=== PATIENT | female | born 1975 | race Hispanic/Latino ===

== ENCOUNTER 2017-06-02 07:52 | Observation (INO) | payer MEDICAID ==
[~2017-06-02] VITALS: Ht 167.6 cm; Wt 75.3 kg
[2017-06-02] MEDS: LACTATED RINGERS 1000ML 1,000 ML IV SCH ×2 (05:30→13:57)
[2017-06-02] MEDS ORDERED: SODIUM CHLORIDE 0.9% 1000ML 3,000 ML IV ONE (08:27)
[2017-06-02 08:28] LABS: BASOPHILS % (AUTO) 0.4 % (0.0-5.0); EOSINOPHILS % (AUTO) 0.1 % (0.0-8.0); LYMPHOCYTES % (AUTO) 9.7 % (21.0-51.0); MEAN CORPUSCULAR HEMOGLOBIN 30.5 pg (27.0-33.0); MEAN CORPUSCULAR HGB CONC 34.7 g/dL (32.0-36.0); MEAN CORPUSCULAR VOLUME 88.1 fL (79-99); MONOCYTES % (AUTO) 3.4 % (3.0-13.0); NEUTROPHILS % (AUTO) 86.4 % (40.0-77.0); PLATELET COUNT (AUTO) 222 K/uL (130-400); RED BLOOD CELL COUNT(AUTO) 3.75 MIL/uL (4.00-5.50); RED CELL DISTRIBUTION WIDTH 14.4 % (11.0-15.5); WHITE BLOOD COUNT (AUTO) 13.4 K/uL (4.8-10.8)
[2017-06-02] MEDS ORDERED: MEROPENEM 1 GM VIAL ONE (08:28)
[2017-06-02 08:35] LABS: CARBON DIOXIDE 28 mmol/L (21-32); CHLORIDE 100 mmol/L (101-111); CREATININE 0.8 mg/dL (0.5-1.5); GLOMERULAR FILTR. RATE CALC 84 mL/min (>60); GLUCOSE,RANDOM 106 mg/dL (70-105); POTASSIUM 3.4 mmol/L (3.5-5.1); SODIUM SERUM 137 mmol/L (136-145); UREA NITROGEN, BLOOD 5 mg/dL (7-18)
[2017-06-02 08:51] LABS: ALANINE AMINOTRANSFERASE 28 U/L (12-78); ALBUMIN 3.6 g/dL (3.5-5.0); ASPARTATE AMINOTRANSFERASE 26 U/L (10-37); BILIRUBIN,TOTAL 0.6 mg/dL (0.2-1.0); CREATINE KINASE MB < 0.5 ng/mL (0.5-3.6); CREATINE KINASE, TOTAL 90 U/L (21-232); MYOGLOBIN 25 ng/mL (10-92); TOTAL PROTEIN, SERUM 7.5 g/dL (6.0-8.3); TROPONIN I < 0.04 ng/mL (0.00-0.06)
[2017-06-02 08:56] LABS: INR 0.95 (0.85-1.15); PARTIAL THROMBOPLASTIN TIME 27.3 SEC (26.3-35.5)
[2017-06-02] MEDS ORDERED: KETOROLAC TROMETHAMINE 30MG/ML ONE (08:58)
[2017-06-02] MEDS ORDERED: IOPAMIDOL-370 75 ML VIAL IV ONE (09:16)
[2017-06-02 10:20] LABS: APPEARANCE,URINE Clear (CLEAR); BILIRUBIN,URINE Negative (NEGATIVE); COLOR,URINE Yellow (YELLOW); GLUCOSE, URINE (UA) Negative (NEGATIVE); KETONES,URINE Trace mg/dL (NEGATIVE); LEUKOCYTE ESTERASE ,URINE Moderate (NEGATIVE); NITRATE,URINE Negative (NEGATIVE); OCCULT BLOOD,URINE Negative (NEGATIVE); PH,URINE 7.5 (5.0-8.0); PROTEIN,URINE Negative (NEGATIVE); UROBILINOGEN,URINE 0.2 mg/dL (0.2-1.0)
[2017-06-02 10:29] LABS: BACTERIA,URINE Few /HPF (None Seen); RBC,URINE 0-1 /HPF (0-1)
[2017-06-02] MEDS ORDERED: HYDROMORPHONE HCL 2 MG/ML VIAL ONE (11:33)
[2017-06-02 12:20] VITALS: BP 135/85
[2017-06-02] MEDS ORDERED: PHARMACY COMMUNICATION MISC SCH (12:45)
[2017-06-02] MEDS ORDERED: HYDROCODONE/ACETAMINOPHEN 5/325 MG TAB PO PRN (12:45)
[2017-06-02] MEDS ORDERED: GENTAMICIN PROTOCOL PER PHARMACY IV SCH (13:15)
[2017-06-02] MEDS ORDERED: PROMETHAZINE HCL 25 MG/ML 1ML AMPULE IM PRN (13:45)
[2017-06-02] MEDS ORDERED: COMPOUND IV REFRIGERATED 1 EACH IVSOLN MISC PRN (13:45)
[2017-06-02] MEDS ORDERED: PROMETHAZINE HCL 25 MG/ML 1ML AMPULE IM ONE (13:53)
[2017-06-02] MEDS: CLINDAMYCIN 900 MG/D5% WATER 50 ML IV SCH ×2 (13:57→21:12)
[2017-06-02] MEDS: MEPERIDINE-PF 50 MG/ML SYG IM PRN ×3 (13:58→22:48)
[2017-06-02] MEDS: HYDROCODONE/ACETAMINOPHEN 5/325 MG TAB PO PRN ×2 (15:25→21:06)
[2017-06-02] MEDS: GENTAMICIN SULFATE 300 MG in SODIUM CHLORIDE 0.9% 100 ML IV SCH (15:27)
[2017-06-02 16:00] VITALS: BP 112/63
[2017-06-02] MEDS ORDERED: MULT-1203 PO (17:09)
[2017-06-02 20:14] VITALS: BP 109/71
[2017-06-02 23:54] VITALS: BP 99/57
[2017-06-03 03:50] VITALS: BP 109/63
[2017-06-03] MEDS: CLINDAMYCIN 900 MG/D5% WATER 50 ML IV SCH ×2 (05:44→12:20)
[2017-06-03] MEDS: HYDROCODONE/ACETAMINOPHEN 5/325 MG TAB PO PRN (05:49)
[2017-06-03 06:39] LABS: HEMATOCRIT 27.2 % (36-48); MEAN CORPUSCULAR HGB CONC 33.6 g/dL (32.0-36.0); MEAN CORPUSCULAR VOLUME 89.3 fL (79-99); PLATELET COUNT (AUTO) 174 K/uL (130-400); RED BLOOD CELL COUNT(AUTO) 3.05 MIL/uL (4.00-5.50); RED CELL DISTRIBUTION WIDTH 14.5 % (11.0-15.5)
[2017-06-03 08:05] VITALS: BP 117/62
[2017-06-03 11:20] VITALS: BP 110/64
[2017-06-03] MEDS ORDERED: DOCUSATE SODIUM 100 MG CAP PO SCH (12:00)
[2017-06-03] MEDS: GENTAMICIN SULFATE 300 MG in SODIUM CHLORIDE 0.9% 100 ML IV SCH (14:58)
[2017-06-03 15:38] VITALS: BP 118/80
== END 2017-06-03 15:55 | disposition home or self-care (01) ==
LOC: EDH 07:52 → WSH 11:30
PROVIDERS: ADMIT Obstetrics & Gynecology; ATTEND Obstetrics & Gynecology
DX: R10.2 Pelvic and perineal pain (principal); Z88.5 Allergy status to narcotic agent; Z88.0 Allergy status to penicillin; Z90.49 Acquired absence of other specified parts of digestive tract; F17.210 Nicotine dependence, cigarettes, uncomplicated
CPT/HCPCS: 36415 ×2; 71045; 74177; 80053; 80170 ×2; 81001; 82550; 82553; 83605; 83874; 84484; 84703; 85025; 85027; 85610; 85730; 87040 ×2; 87088; 87804 ×2; 93005; 96361; 96365; 96367; 96372 ×2; 96375 ×2; 96376 ×2; 99285; G0378 ×28; J1170; J1580 ×3; J1885; J2175 ×3; J2185; J2550 ×2; J3490 ×4; J7030; J7120; Q9967

== ENCOUNTER 2017-07-20 12:05 | Emergency (ER) | payer MEDICAID ==
[~2017-07-20 12:05] MED LIST: MULT-1203 PO
[2017-07-20] MEDS ORDERED: KETOROLAC TROMETHAMINE 60 MG/2 ML VIAL ONE (12:31)
== END 2017-07-20 12:45 | disposition home or self-care (01) ==
LOC: EDH 12:05
DX: M54.32 Sciatica, left side (principal); Z88.0 Allergy status to penicillin; Z88.5 Allergy status to narcotic agent
CPT/HCPCS: 96372; 99283; J1885

== ENCOUNTER 2017-07-23 04:23 | Emergency (ER) | payer MEDICAID | END 2017-07-23 06:02 | disposition home or self-care (01) | LOC: EDH 04:23 | DX: M54.32 Sciatica, left side (principal); R20.0 Anesthesia of skin; Z90.49 Acquired absence of other specified parts of digestive tract; Z88.0 Allergy status to penicillin; Z88.6 Allergy status to analgesic agent; Z72.0 Tobacco use | CPT/HCPCS: 99281 ==

== ENCOUNTER 2017-08-12 06:11 | Emergency (ER) | payer MEDICAID ==
[2017-08-12] MEDS ORDERED: HYDROCODONE/ACETAMINOPHEN 7.5/325 MG TAB ONE ×2 (07:20→07:30)
[2017-08-12] MEDS ORDERED: KETOROLAC TROMETHAMINE 30MG/ML ONE ×2 (07:20→07:30)
== END 2017-08-12 07:41 | disposition home or self-care (01) ==
LOC: EDH 06:11
DX: M54.32 Sciatica, left side (principal); R20.2 Paresthesia of skin; Z88.0 Allergy status to penicillin; Z88.5 Allergy status to narcotic agent; Z90.49 Acquired absence of other specified parts of digestive tract; Z98.890 Other specified postprocedural states
CPT/HCPCS: 81025; 96372; 99283; J1885 ×2

== ENCOUNTER 2017-08-18 06:30 | Emergency (ER) | payer MEDICAID ==
[2017-08-18] MEDS ORDERED: TETANUS/DIPHTHERIA TOXOID [ADULT] 0.5 ML VIAL IM ONE (07:17)
[2017-08-18] MEDS ORDERED: ACETAMINOPHEN-CODEINE 300/30MG TAB ONE (07:37)
== END 2017-08-18 09:30 | disposition short-term general hospital (02) ==
LOC: EDH 06:30
DX: S91.311A Laceration without foreign body, right foot, initial encounter (principal); Z72.0 Tobacco use; Z88.0 Allergy status to penicillin; Z88.5 Allergy status to narcotic agent; W45.8XXA Other foreign body or object entering through skin, initial encounter; Y93.G3 Activity, cooking and baking; Y92.098 Other place in other non-institutional residence as the place of occurrence of the external cause; Y99.8 Other external cause status
CPT/HCPCS: 73630; 81025; 90471; 90714

== ENCOUNTER 2018-05-30 18:57 | Emergency (ER) | payer MEDICAID ==
[2018-05-30 20:05] LABS: APPEARANCE,URINE SL CLOUDY (CLEAR); BILIRUBIN,URINE SMALL (NEGATIVE); COLOR,URINE YELLOW (YELLOW); GLUCOSE, URINE (UA) NEGATIVE (NEGATIVE); KETONES,URINE 5 mg/dL (NEGATIVE); LEUKOCYTE ESTERASE ,URINE NEGATIVE (NEGATIVE); NITRATE,URINE NEGATIVE (NEGATIVE); OCCULT BLOOD,URINE LARGE (NEGATIVE); PROTEIN,URINE 30 (NEGATIVE); UROBILINOGEN,URINE 0.2 mg/dL (0.2-1.0)
[2018-05-30 20:07] LABS: CREATININE 0.8 mg/dL (0.5-1.5); POTASSIUM 4.1 mmol/L (3.5-5.1)
[2018-05-30 20:08] LABS: HCG,QUAL RESULT NEGATIVE (NEGATIVE)
[2018-05-30] MEDS ORDERED: ONDANSETRON HCL 4 MG/2 ML VIAL ONE (20:11)
[2018-05-30 20:12] LABS: ALBUMIN 4.1 g/dL (3.5-5.0); BILIRUBIN,DIRECT 0.1 mg/dL (0.0-0.3); BILIRUBIN,TOTAL 0.6 mg/dL (0.2-1.0)
[2018-05-30 20:25] LABS: BACTERIA,URINE Few /HPF (None Seen); SQUAMOUS EPITHELIAL CELL,UR Moderate /HPF (0-2)
[2018-05-30 20:26] LABS: BASOPHILS % (AUTO) 0.5 % (0.0-5.0); EOSINOPHILS % (AUTO) 2.5 % (0.0-8.0); HEMATOCRIT 43.2 % (36-48); LYMPHOCYTES % (AUTO) 23.4 % (21.0-51.0); MEAN CORPUSCULAR HEMOGLOBIN 32.3 pg (27.0-33.0); MEAN CORPUSCULAR HGB CONC 33.6 g/dL (32.0-36.0); MEAN CORPUSCULAR VOLUME 96.2 fL (79-99); NEUTROPHILS % (AUTO) 66.6 % (40.0-77.0); PLATELET COUNT (AUTO) 214 K/uL (130-400); RED BLOOD CELL COUNT(AUTO) 4.49 MIL/uL (4.00-5.50); WHITE BLOOD COUNT (AUTO) 7.2 K/uL (4.8-10.8)
[2018-05-30] MEDS ORDERED: KETOROLAC TROMETHAMINE 30MG/ML ONE (20:59)
== END 2018-05-30 21:30 | disposition home or self-care (01) ==
LOC: EDH 18:57
DX: K52.9 Noninfective gastroenteritis and colitis, unspecified (principal); Z88.0 Allergy status to penicillin; Z88.6 Allergy status to analgesic agent; Z72.0 Tobacco use; Z90.49 Acquired absence of other specified parts of digestive tract
CPT/HCPCS: 36415; 80048; 80076; 81001; 81025; 85025; 87804 ×2; 96361; 96374; 96375; 99283; J1885; J2405

== ENCOUNTER 2018-07-19 17:15 | Emergency (ER) | payer MEDICAID | END 2018-07-19 17:41 | disposition left against medical advice (07) | LOC: EDH 17:15 | DX: Z53.21 Procedure and treatment not carried out due to patient leaving prior to being seen by health care provider (principal) ==

== ENCOUNTER 2018-07-20 08:30 | Emergency (ER) | payer MEDICAID ==
[2018-07-20 09:57] LABS: APPEARANCE,URINE Clear (CLEAR); BILIRUBIN,URINE Negative (NEGATIVE); COLOR,URINE Yellow (YELLOW); GLUCOSE, URINE (UA) Negative (NEGATIVE); KETONES,URINE Negative (NEGATIVE); LEUKOCYTE ESTERASE ,URINE Trace (NEGATIVE); NITRATE,URINE Negative (NEGATIVE); OCCULT BLOOD,URINE Moderate (NEGATIVE); PH,URINE 6.5 (5.0-8.0); PROTEIN,URINE Negative (NEGATIVE); UROBILINOGEN,URINE 0.2 mg/dL (0.2-1.0)
[2018-07-20 10:02] LABS: BACTERIA,URINE Rare /HPF (None Seen); RBC,URINE 0-1 /HPF (0-1); SQUAMOUS EPITHELIAL CELL,UR Moderate /HPF (0-2); WBC,URINE 0-1 /HPF (0-1)
[2018-07-20] MEDS ORDERED: ACETAMINOPHEN-CODEINE 300/30MG TAB ONE (11:10)
[2018-07-20] MEDS ORDERED: ONDANSETRON ODT 4 MG TAB ONE (11:10)
[2018-07-20 11:17] LABS: BASOPHILS % (AUTO) 0.5 % (0.0-5.0); HEMATOCRIT 34.4 % (36-48); LYMPHOCYTES % (AUTO) 30.5 % (21.0-51.0); MEAN CORPUSCULAR HGB CONC 34.2 g/dL (32.0-36.0); MEAN CORPUSCULAR VOLUME 93.6 fL (79-99); MONOCYTES % (AUTO) 6.7 % (3.0-13.0); NEUTROPHILS % (AUTO) 60.3 % (40.0-77.0); PLATELET COUNT (AUTO) 246 K/uL (130-400); RED BLOOD CELL COUNT(AUTO) 3.68 MIL/uL (4.00-5.50); RED CELL DISTRIBUTION WIDTH 12.6 % (11.0-15.5); WHITE BLOOD COUNT (AUTO) 6.9 K/uL (4.8-10.8)
[2018-07-20 11:26] LABS: CREATININE 0.5 mg/dL (0.5-1.5); POTASSIUM 3.4 mmol/L (3.5-5.1)
[2018-07-20 11:32] LABS: ALBUMIN 3.3 g/dL (3.5-5.0); BILIRUBIN,TOTAL 0.6 mg/dL (0.2-1.0)
== END 2018-07-20 12:31 | disposition home or self-care (01) ==
LOC: EDH 08:30
DX: G89.18 Other acute postprocedural pain (principal); R10.30 Lower abdominal pain, unspecified; Z88.0 Allergy status to penicillin; Z88.6 Allergy status to analgesic agent; Z90.49 Acquired absence of other specified parts of digestive tract; Z98.890 Other specified postprocedural states
CPT/HCPCS: 36415; 74176; 80053; 81001; 81025; 83690; 85025

== ENCOUNTER 2019-03-15 11:14 | Emergency (ER) | payer MEDICAID ==
[2019-03-15] MEDS ORDERED: ONDANSETRON ODT 4 MG TAB ONE (11:33)
[2019-03-15] MEDS ORDERED: SODIUM CHLORIDE 0.9% 1000ML 1,000 ML IV ONE (11:46)
[2019-03-15] MEDS ORDERED: SIMETHICONE 80 MG TAB.CHEW ONE (11:46)
[2019-03-15] MEDS ORDERED: DICYCLOMINE HCL 10 MG/ML 2ML AMP IM ONE (11:46)
[2019-03-15 11:49] LABS: APPEARANCE,URINE Clear (CLEAR); BILIRUBIN,URINE Negative (NEGATIVE); COLOR,URINE Yellow (YELLOW); GLUCOSE, URINE (UA) Negative (NEGATIVE); KETONES,URINE Negative (NEGATIVE); LEUKOCYTE ESTERASE ,URINE Negative (NEGATIVE); NITRATE,URINE Negative (NEGATIVE); OCCULT BLOOD,URINE Negative (NEGATIVE); PROTEIN,URINE Negative (NEGATIVE)
[2019-03-15 11:52] LABS: HCG,QUAL RESULT NEGATIVE (NEGATIVE)
[2019-03-15 12:11] LABS: BASOPHILS % (AUTO) 0.4 % (0.0-5.0); EOSINOPHILS % (AUTO) 0.7 % (0.0-8.0); LYMPHOCYTES % (AUTO) 14.2 % (21.0-51.0); MEAN CORPUSCULAR HGB CONC 34.7 g/dL (32.0-36.0); MONOCYTES % (AUTO) 6.6 % (3.0-13.0); NEUTROPHILS % (AUTO) 78.1 % (40.0-77.0); PLATELET COUNT (AUTO) 231 K/uL (130-400); RED BLOOD CELL COUNT(AUTO) 4.11 MIL/uL (4.00-5.50); RED CELL DISTRIBUTION WIDTH 12.4 % (11.0-15.5); WHITE BLOOD COUNT (AUTO) 9.3 K/uL (4.8-10.8)
[2019-03-15 12:21] LABS: CREATININE 0.6 mg/dL (0.5-1.5); POTASSIUM 3.8 mmol/L (3.5-5.1)
[2019-03-15 12:27] LABS: ALBUMIN 3.3 g/dL (3.5-5.0); BILIRUBIN,TOTAL 0.8 mg/dL (0.2-1.0); MAGNESIUM 1.6 mg/dL (1.80-2.40)
== END 2019-03-15 13:18 | disposition home or self-care (01) ==
LOC: EDH 11:14
DX: R11.2 Nausea with vomiting, unspecified (principal); R19.7 Diarrhea, unspecified; Z90.49 Acquired absence of other specified parts of digestive tract; Z72.0 Tobacco use; Z88.0 Allergy status to penicillin; Z88.5 Allergy status to narcotic agent
CPT/HCPCS: 36415; 80053; 81003; 81025; 83690; 83735; 85025; 96360; 96372; 99284; J0500; J7030

== ENCOUNTER → 2019-12-24 | Outpatient (CLI) | payer MEDICAID | END | disposition home or self-care (01) | LOC: SHCH 12:24 | PROVIDERS: ATTEND Internal Medicine Cardiovascular Disease | DX: I87.2 Venous insufficiency (chronic) (peripheral) (principal) | CPT/HCPCS: 93970 ==

== ENCOUNTER → 2020-08-31 | Emergency (ER) | payer MEDICAID ==
[~2020-08-31] MED LIST changes: +ACETAMINOPHEN EXTRA STRENGTH 500 MG TABLET ONE; +LEVOFLOXACIN 500 MG/D5W 100 ML 100 ML ONE; +ONDANSETRON HCL 4 MG/2 ML VIAL ONE
[2020-08-31 16:33] LABS: BASOPHILS % (AUTO) 0.4 % (0.0-5.0); EOSINOPHILS % (AUTO) 1.7 % (0.0-8.0); HEMATOCRIT 27.1 % (36-48); LYMPHOCYTES % (AUTO) 19.3 % (21.0-51.0); MEAN CORPUSCULAR HGB CONC 33.6 g/dL (32.0-36.0); MEAN CORPUSCULAR VOLUME 95.4 fL (79-99); MONOCYTES % (AUTO) 7.2 % (3.0-13.0); PLATELET COUNT (AUTO) 330 K/uL (130-400); RED BLOOD CELL COUNT(AUTO) 2.84 MIL/uL (4.00-5.50); RED CELL DISTRIBUTION WIDTH 12.4 % (11.0-15.5); WHITE BLOOD COUNT (AUTO) 10.7 K/uL (4.8-10.8)
[2020-08-31 16:47] LABS: CREATININE 0.8 mg/dL (0.5-1.5); POTASSIUM 3.7 mmol/L (3.5-5.1)
[2020-08-31 16:51] LABS: ALBUMIN 2.7 g/dL (3.5-5.0); BILIRUBIN,TOTAL 0.5 mg/dL (0.2-1.0); TOTAL PROTEIN, SERUM 6.2 g/dL (6.0-8.3)
[2020-08-31 17:22] LABS: APPEARANCE,URINE Clear (CLEAR); BILIRUBIN,URINE Negative (NEGATIVE); COLOR,URINE Yellow (YELLOW); GLUCOSE, URINE (UA) Negative (NEGATIVE); KETONES,URINE Negative (NEGATIVE); LEUKOCYTE ESTERASE ,URINE Negative (NEGATIVE); NITRATE,URINE Negative (NEGATIVE); OCCULT BLOOD,URINE Negative (NEGATIVE); PROTEIN,URINE Negative (NEGATIVE); UROBILINOGEN,URINE 0.2 mg/dL (0.2-1.0)
== END ==
LOC: EDH 14:39
DX: G89.18 Other acute postprocedural pain (principal); Z90.49 Acquired absence of other specified parts of digestive tract; Z88.0 Allergy status to penicillin; Z88.5 Allergy status to narcotic agent
CPT/HCPCS: 36415; 80053; 81003; 82550; 83605; 85025; 87040 ×2; 96365; 96368; 99284; J1956; J2405

== ENCOUNTER 2020-09-30 07:59 | Emergency (ER) | payer MEDICAID ==
[~2020-09-30] VITALS: Ht 160 cm; Wt 72.6 kg
[~2020-09-30 07:59] MED LIST changes: -ACETAMINOPHEN EXTRA STRENGTH 500 MG TABLET ONE; +DOXY100C2 PO; +LEVO750T46 PO; -LEVOFLOXACIN 500 MG/D5W 100 ML 100 ML ONE; -ONDANSETRON HCL 4 MG/2 ML VIAL ONE
[2020-09-30 08:07] VITALS: BP 141/78
[2020-09-30 09:41] VITALS: BP 126/68
== END 2020-09-30 10:12 | disposition home or self-care (01) ==
LOC: EDH 07:59
DX: Z48.02 Encounter for removal of sutures (principal); E11.9 Type 2 diabetes mellitus without complications; Z88.0 Allergy status to penicillin; Z88.5 Allergy status to narcotic agent; Z79.899 Other long term (current) drug therapy
CPT/HCPCS: 99281

== ENCOUNTER 2021-01-06 07:32 | Emergency (ER) | payer MEDICAID ==
[~2021-01-06] VITALS: Ht 167.6 cm; Wt 73.0 kg
[~2021-01-06 07:32] MED LIST changes: -DOXY100C2 PO; +DOXY100C5 PO
[2021-01-06 08:10] VITALS: BP 154/99
[2021-01-06] MEDS ORDERED: DIPH1POW36 PO (08:27)
== END 2021-01-06 08:39 | disposition home or self-care (01) ==
LOC: EDH 07:32
DX: J06.9 Acute upper respiratory infection, unspecified (principal); Z20.822 Contact with and (suspected) exposure to COVID-19; Z88.0 Allergy status to penicillin; Z88.5 Allergy status to narcotic agent; Z90.49 Acquired absence of other specified parts of digestive tract
CPT/HCPCS: 87635; 87804 ×2; 87880; 99283; C9803

== ENCOUNTER 2021-02-12 07:33 | Emergency (ER) | payer MEDICAID ==
[~2021-02-12] VITALS: Ht 167.6 cm; Wt 73.0 kg
[~2021-02-12 07:33] MED LIST changes: +DIPH1POW36 PO
[2021-02-12] MEDS ORDERED: TETANUS/DIPHTHERIA TOXOID [ADULT] 0.5 ML VIAL IM ONE (08:00)
[2021-02-12] MEDS ORDERED: IBUPROFEN 600 MG TABLET PO ONE (08:00)
[2021-02-12] MEDS ORDERED: SULF1TAB42 PO (08:12)
[2021-02-12 08:27] VITALS: BP 145/95
[2021-02-12] MEDS ORDERED: SULFAMETHOX-TMP DS 800/160 TAB PO SCH (08:30)
== END 2021-02-12 08:28 | disposition home or self-care (01) ==
LOC: EDH 07:33
DX: S92.534A Nondisplaced fracture of distal phalanx of right lesser toe(s), initial encounter for closed fracture (principal); S91.114A Laceration without foreign body of right lesser toe(s) without damage to nail, initial encounter; I10 Essential (primary) hypertension; Z88.0 Allergy status to penicillin; Z88.5 Allergy status to narcotic agent; Z90.49 Acquired absence of other specified parts of digestive tract; X58.XXXA Exposure to other specified factors, initial encounter; Y93.89 Activity, other specified; Y92.89 Other specified places as the place of occurrence of the external cause; Y99.8 Other external cause status
CPT/HCPCS: 73660; 90471; 90714

== ENCOUNTER 2021-04-14 12:07 | Emergency (ER) | payer MEDICAID ==
[~2021-04-14] VITALS: Ht 170.2 cm; Wt 72.6 kg
[~2021-04-14 12:07] MED LIST changes: +SULF1TAB42 PO
[2021-04-14 12:09] VITALS: BP 153/94
[2021-04-14] MEDS ORDERED: GUAIFENESIN-DM 200/20 MG 10 ML PO ONE (13:00)
[2021-04-14] MEDS ORDERED: KETOROLAC 30MG VIAL (30MG/ML) IM ONE (13:00)
[2021-04-14] MEDS ORDERED: DEXAMETHASONE SOD PHOSPHATE 4 MG/ML 1ML VIAL IM SCH (13:00)
[2021-04-14] MEDS ORDERED: ALBU90AE2 IH (14:36)
[2021-04-14] MEDS ORDERED: AMOX-429 PO (14:36)
[2021-04-14] MEDS ORDERED: D-ME118S47 PO (14:36)
[2021-04-14] MEDS ORDERED: KETOROLAC 30MG VIAL (30MG/ML) ONE (14:43)
[2021-04-14] MEDS ORDERED: GUAIFENESIN-CODEINE 5 ML SYRUP ONE (14:43)
[2021-04-14] MEDS ORDERED: GUAIFENESIN-DM 200/20 MG 10 ML ONE (14:47)
== END 2021-04-14 15:18 | disposition home or self-care (01) ==
LOC: EDH 12:07
DX: U07.1 COVID-19 (principal); J32.9 Chronic sinusitis, unspecified; Z88.0 Allergy status to penicillin; Z88.5 Allergy status to narcotic agent; Z79.899 Other long term (current) drug therapy; Z79.1 Long term (current) use of non-steroidal anti-inflammatories (NSAID); Z79.52 Long term (current) use of systemic steroids; Z90.49 Acquired absence of other specified parts of digestive tract
CPT/HCPCS: 87635; 87804 ×2; 87880; 96372 ×2; 99284; C9803; J1100; J1885

== ENCOUNTER 2021-12-27 08:46 | Emergency (ER) | payer MEDICAID ==
[~2021-12-27] VITALS: Ht 167.6 cm; Wt 79.4 kg
[~2021-12-27 08:46] MED LIST changes: +ALBU90AE2 IH; +AMOX-429 PO; +D-ME118S47 PO; +LEVO750T39 PO; -LEVO750T46 PO
[2021-12-27 09:30] LABS: BASOPHILS % (AUTO) 0.3 % (0.0-5.0); EOSINOPHILS % (AUTO) 1.8 % (0.0-8.0); HEMATOCRIT 34.9 % (36-48); LYMPHOCYTES % (AUTO) 33.9 % (21.0-51.0); MEAN CORPUSCULAR HEMOGLOBIN 31.5 pg (27.0-33.0); MEAN CORPUSCULAR HGB CONC 33.2 g/dL (32.0-36.0); MEAN CORPUSCULAR VOLUME 94.8 fL (79-99); MONOCYTES % (AUTO) 7.1 % (3.0-13.0); NEUTROPHILS % (AUTO) 56.4 % (40.0-77.0); PLATELET COUNT (AUTO) 253 K/uL (130-400); RED BLOOD CELL COUNT(AUTO) 3.68 MIL/uL (4.00-5.50); RED CELL DISTRIBUTION WIDTH 12.4 % (11.0-15.5); WHITE BLOOD COUNT (AUTO) 6.6 K/uL (4.8-10.8)
[2021-12-27 09:36] LABS: APPEARANCE,URINE CLEAR (CLEAR); BILIRUBIN,URINE NEGATIVE (NEGATIVE); COLOR,URINE YELLOW (YELLOW); GLUCOSE, URINE (UA) NEGATIVE (NEGATIVE); KETONES,URINE NEGATIVE (NEGATIVE); LEUKOCYTE ESTERASE ,URINE SMALL (NEGATIVE); NITRATE,URINE NEGATIVE (NEGATIVE); OCCULT BLOOD,URINE TRACE-INTACT (NEGATIVE); PH,URINE 5.5 (5.0-8.0); PROTEIN,URINE NEGATIVE (NEGATIVE); UROBILINOGEN,URINE 0.2 mg/dL (0.2-1.0)
[2021-12-27 09:37] LABS: CREATININE 0.6 mg/dL (0.5-1.5); POTASSIUM 4.3 mmol/L (3.5-5.1)
[2021-12-27 09:41] LABS: BACTERIA,URINE Rare /HPF (None Seen); RBC,URINE 0-1 /HPF (0-1); SQUAMOUS EPITHELIAL CELL,UR Rare /HPF (0-2); WBC,URINE 0-1 /HPF (0-1)
[2021-12-27 09:42] LABS: ALBUMIN 3.3 g/dL (3.5-5.0); TOTAL PROTEIN, SERUM 6.9 g/dL (6.0-8.3)
[2021-12-27] MEDS ORDERED: NITR100C4 PO (10:49)
[2021-12-27 10:52] VITALS: BP 131/84
== END 2021-12-27 11:00 | disposition home or self-care (01) ==
LOC: EDH 08:46
DX: N39.0 Urinary tract infection, site not specified (principal); J32.9 Chronic sinusitis, unspecified; Z20.822 Contact with and (suspected) exposure to COVID-19; Z88.0 Allergy status to penicillin; Z88.5 Allergy status to narcotic agent; Z90.49 Acquired absence of other specified parts of digestive tract
CPT/HCPCS: 99283; 87635; 80053; 85025; 87804 ×2; 81001; 36415; C9803

== ENCOUNTER 2022-11-15 05:46 | Emergency (ER) | payer MEDICAID ==
[~2022-11-15] VITALS: Ht 167.6 cm; Wt 85.3 kg
[~2022-11-15 05:46] MED LIST changes: +NITR100C4 PO
[2022-11-15 05:48] VITALS: BP 134/87; PULSE 76; RESP 18
== END 2022-11-15 06:42 | disposition home or self-care (01) ==
LOC: EDH 05:46
DX: I96 Gangrene, not elsewhere classified (principal); Z90.49 Acquired absence of other specified parts of digestive tract; Z88.5 Allergy status to narcotic agent; Z88.0 Allergy status to penicillin
CPT/HCPCS: 99281

== ENCOUNTER 2023-07-11 13:27 | Emergency (ER) | payer MEDICAID ==
[~2023-07-11] VITALS: Ht 167.6 cm; Wt 80.3 kg
[2023-07-11 13:31] VITALS: BP 135/79; PULSE 101; RESP 20
[2023-07-11 13:55] LABS: RAPID GROUP A STREP negative (NEGATIVE)
[2023-07-11 13:56] LABS: INFLUENZA TYPE A Negative For Type A (NEGATIVE); INFLUENZA TYPE B Negative For Type B (NEGATIVE)
[2023-07-11 13:57] LABS: SARS-CoV-2, RNA, NAAT NEGATIVE SARS CoV-2 (NEGATIVE)
[2023-07-11] MEDS ORDERED: BENZ-39 PO (15:53)
[2023-07-11] MEDS ORDERED: ALBUHFA IH (15:53)
== END 2023-07-11 15:50 | disposition left against medical advice (07) ==
LOC: EDH 13:27
DX: J06.9 Acute upper respiratory infection, unspecified (principal); Z20.822 Contact with and (suspected) exposure to COVID-19; Z79.899 Other long term (current) drug therapy; Z98.890 Other specified postprocedural states; Z90.49 Acquired absence of other specified parts of digestive tract; Z88.0 Allergy status to penicillin; Z88.5 Allergy status to narcotic agent
CPT/HCPCS: 71045; 87635; 87804; 87880

== ENCOUNTER 2024-02-17 09:13 | Emergency (ER) | payer MEDICAID ==
[~2024-02-17] VITALS: Ht 167.6 cm; Wt 78.0 kg
[~2024-02-17 09:13] MED LIST changes: -ALBU90AE2 IH; +ALBU90AE3 IH; +ALBUHFA IH; +BENZ-39 PO; +BROM118S48 PO; -D-ME118S47 PO; -LEVO750T39 PO; +LEVO750T40 PO
[2024-02-17 09:48] LABS: APPEARANCE,URINE CLOUDY (CLEAR); BILIRUBIN,URINE NEGATIVE (NEGATIVE); COLOR,URINE LIGHT-ORANGE (YELLOW); GLUCOSE, URINE (UA) NEGATIVE (NEGATIVE); KETONES,URINE NEGATIVE (NEGATIVE); LEUKOCYTE ESTERASE ,URINE NEGATIVE Leu/uL (NEGATIVE); NITRATE,URINE NEGATIVE (NEGATIVE); OCCULT BLOOD,URINE LARGE (NEGATIVE); PROTEIN,URINE 20 mg/dL (NEGATIVE); UROBILINOGEN,URINE 0.2 mg/dL (0.2-1.0)
--- NOTE | 2024-02-17 09:53 | ERN ---
ED Note History of Present Illness Stated Complaint: PELVIC PAIN Chief Complaint: Pelvic Pain Time Seen by MD: 09:14 Dictation: 48-year-old female presents to the ED for evaluation of pelvic pain onset 1 day ago. Patient reports right lower quadrant abdominal pain worsening with movement, but denies any vomiting, diarrhea or any other associated symptoms at this time. Patient has history of BBL surgery, tummy tuck. No other medical or surgical history mentioned. Allergies: Coded Allergies: Penicillins (Verified Allergy, 06/27/12) morphine (Verified Allergy, 06/27/12) Home Meds Active Scripts Benzonatate (Tessalon Perles) 100 Mg Cap, 100 MG PO TID for cough, #30 CAP 0 Refills Prov:MARCY SEE NP 07/11/23 Albuterol Sulfate (Ventolin Hfa/Proventil Hfa/Proair Hfa) 90 Mcg Puff, 2 PUFF IH Q4H PRN for SHORTNESS OF BREATH/WHEEZING for 30 Days, #1 INH 0 Refills Prov:MARCY SEE NP 07/11/23 Nitrofurantoin Monohyd/M-Cryst (Macrobid 100 mg Capsule) 100 Mg Capsule, 100 MG PO BID for 7 Days, #14 CAP Prov:JALEEL LIPSCOMB MD 12/27/21 Albuterol Sulfate (Proair Digihaler) 90 Mcg Aer.pw.bas, 90 MCG IH Q4HPRN for 30 Days, #1 INHALER Prov:CHAYITO MARSHALL NP 04/14/21 D-Methorphan Hb/P-Epd HCl/Bpm (Bromfed Dm Cough Syrup) 118 Ml Syrup, 7.5 ML PO TID for cough for 5 Days, #120 ML Prov:CHAYITO MARSHALL NP 04/14/21 Amoxicillin/Potassium Clav (Augmentin 875-125 Tablet) 1 Each Tablet, 1 EACH PO BID for 10 Days, #20 TAB Prov:CHAYITO MARSHALL NP 04/14/21 Sulfamethoxazole/Trimethoprim (Bactrim Ds Tablet) 1 Each Tablet, 1 TAB PO BID for 7 Days, #14 TAB 0 Refills Prov:GASTON AUGUSTE MD 02/12/21 Diphenhyd/Phenyleph/Acetaminop (Theraflu Nighttime Powerpod) 1 Each Powder.pod, 1 EACH PO BID, #1 PACK Prov:AZAM JARA MD 01/06/21 Doxycycline Hyclate (Doxycycline Hyclate) 100 Mg Capsule, 100 MG PO BID for 10 Days, #20 CAP Prov:RADHA PACHECO MD 09/04/20 Levofloxacin (Levofloxacin) 750 Mg Tablet, 750 MG PO DAILY for 10 Days, #10 TAB Prov:RADHA PACHECO MD 09/04/20 Reported Medications Multivitamin (Multi Vitamin Daily) 1 Each Tablet, 1 EACH PO DAILY, TAB 06/02/17 Past Medical History Past Medical History: No Pertinent History Additional Past Medical Hx: DENIES PMHX Surgical History: Appendectomy, Cholecystectomy, Other Surgical History Other: RIGHT FOOT TENDON Family History: HTN History: Not Applicable Review of System Dictation Constitutional: Negative for fever,chills, and weight loss Eyes: Negative for injury, pain,redness, and discharge ENT: Negative for injury,pain or swelling Cardiovascular: Negative for chest pain, palpitations, and edema Respiratory: Negative for shortness of breath, cough, and wheezing, Abdomen/GI: Positive for right lower quadrant abdominal pain and right pelvic pain, negative for, nausea, vomiting, diarrhea, and constipation Back: Negative for injury and pain : Negative for injury, bleeding and discharge MS/Extremity: Negative for injury and deformity Skin: Negative for rash, and discoloration Neuro: Negative for headache, weakness, numbness, tingling, and seizure Psych: Negative for suicide ideation, homicidal ideation, and hallucinations Initial Vital Sign VS Vital Signs Date Time Temp Pulse Resp B/P (MAP) Pulse Ox O2 Delivery O2 Flow Rate FiO2 02/17/24 09:17 97.9 85 18 131/97 100 Room Air 02/17/24 09:21 0 21 Physical Exam Dictation General: awake, alert, NAD Head/Face: Normocephalic, atraumatic Eyes: PERRL, EOMI, vision at baseline ENT: oral cavity clear, TMs clear, no signs of infection Neck: Trachea midline, supple, no nuchal rigidity Cardiovascular: RRR, normal S1/S2, No MRGs, no JVD Respiratory: CTAB, no respiratory distress, No rales or wheezes Abdomen: Soft, non-tender, non-distended, normal bowel sounds, no guarding or rebound. Skin: Warm, dry, normal turgor, no rash MS/Extremity: Pulses equal, no cyanosis, neurovascular intact, FROM Neuro: COAx4, GCS 15, strength 5/5, CN 2-12 intact, normal cerebellar exam, normal gait, Psych: Normal behavior, mood, and affect normal Results (Laboratory/Radiology) Laboratory/Radiology Laboratory Tests Test 02/17/24 09:35 02/17/24 10:13 Urine Color LIGHT-ORANGE (YELLOW) Urine Appearance CLOUDY (CLEAR) H Urine pH 8.0 (5.0-8.0) Urine Specific [place] 1.024 (1.001-1.031) Urine Protein 20 mg/dL (NEGATIVE) H Urine Glucose (UA) NEGATIVE mg/dL (NEGATIVE) Urine Ketones NEGATIVE mg/dL (NEGATIVE) Urine Occult Blood LARGE (NEGATIVE) H Urine Nitrate NEGATIVE (NEGATIVE) Urine Bilirubin NEGATIVE mg/dL (NEGATIVE) Urine Urobilinogen 0.2 mg/dL (0.2-1.0) Urine Leukocyte Esterase NEGATIVE Cristi/uL Urine RBC 11-25 /HPF (0-1) H Urine WBC 2-5 /HPF (0-1) H Urine Squamous Epithelial Cells MANY /HPF (0-2) Urine Bacteria None /HPF (None Seen) White Blood Count 7.8 K/uL (4.8-10.8) Red Blood Count 3.88 MIL/uL (4.00-5.50) L Hemoglobin 12.5 g/dL (12.0-16.0) Hematocrit 37.5 % (36-48) Mean Corpuscular Volume 96.6 fL (79-99) Mean Corpuscular Hemoglobin 32.2 pg (27.0-33.0) Mean Corpuscular Hemoglobin Concent 33.3 g/dL (32.0-36.0) Red Cell Distribution Width 12.1 % (11.0-15.5) Platelet Count 277 K/uL (130-400) Mean Platelet Volume 10.6 fL (7.5-10.5) H Immature Granulocyte % (Auto) 0.4 % (0-1) Neutrophils (%) (Auto) 52.9 % (40.0-77.0) Lymphocytes (%) (Auto) 38.9 % (21.0-51.0) Monocytes (%) (Auto) 5.2 % (3.0-13.0) Eosinophils (%) (Auto) 2.0 % (0.0-8.0) Basophils (%) (Auto) 0.6 % (0.0-5.0) Neutrophils # (Auto) 4.1 K/uL (1.8-7.7) Lymphocytes # (Auto) 3.1 K/uL (1.0-4.8) Monocytes # (Auto) 0.4 K/uL (0.1-1.0) Eosinophils # (Auto) 0.16 K/uL (0.00-0.70) Basophils # (Auto) 0.05 K/uL (0.00-0.20) Absolute Immature Granulocyte (auto 0.03 K/uL (0-1) Nucleated Red Blood Cells 0.0 % (0.0-0.19) Sodium Level 137 mmol/L (136-145) Potassium Level 4.6 mmol/L (3.5-5.1) Chloride Level 104 mmol/L (101-111) Carbon Dioxide Level 32 mmol/L (21-32) Blood Urea Nitrogen 7 mg/dL (7-18) Creatinine 0.7 mg/dL (0.5-1.0) Glomerular Filtration Rate Calc 108 mL/min (>90) Random Glucose 101 mg/dL (70-105) Total Calcium 9.3 mg/dL (8.5-10.1) Labs Reviewed?: Yes ED Course ED Course Orders Procedure Category Date Status Time Cbc With Differential LAB 02/17/24 Complete 09:31 Basic Metabolic Panel LAB 02/17/24 Complete 09:31 Urinalysis LAB 02/17/24 Complete W/Microscopic 09:31 Us Pelvic Non-Ob Comp US 02/17/24 Resulted 09:31 Ketorolac PHA 02/17/24 In Process Tromethamine 30mg/Ml 11:30 Current Medications Medications (Trade) Dose Ordered Sig/Hiram Route PRN Reason Start Time Stop Time Status Last Admin Dose Admin Ketorolac Tromethamine (toRADol) 30 mg ONCE ONCE IM 02/17/24 11:30 02/17/24 11:31 Vital Signs Date Time Temp Pulse Resp B/P (MAP) Pulse Ox O2 Delivery O2 Flow Rate FiO2 02/17/24 09:21 97.9 85 18 131/97 100 Room Air* 0 21 02/17/24 09:17 97.9 85 18 131/97 100 Room Air Medical Decision Making MDM MDM: Differential diagnosis: Pelvic pain, ovarian cyst, appendicitis Previous outside records reviewed: Old ER visits. Need for hospitalization: Patient does not meet criteria for hospitalization. Need for emergency major/minor surgery: No Patient's prior external medical records from other ER visits were reviewed by me as indicated. Prior testing and results from previous visits were reviewed. Prior tests were taken into account with medical decision making and resource utilization, independent historian/historians were used to obtain complete medical history. I independently interpreted the test that were performed, results were reviewed by me and considered findings on radiology if ordered. Medical management and examination interpretation discussions were had by me with other qualified healthcare professionals as indicated for the patient's care. DX & DISP Disposition: Discharge Departure Impression: Primary Impression: Ovarian cyst Condition: Stable Additional Instructions: FOLLOW-UP WITH PRIMARY CARE PROVIDER IN 1 TO 2 DAYS. TAKE MEDICATIONS DIRECTED HERE IN THE EMERGENCY ROOM. OKAY TO CONTINUE HOME MEDICATIONS UNLESS OTHERWISE DISCUSSED DURING YOUR VISIT IN THE EMERGENCY ROOM TODAY. RETURN TO YOUR NEAREST EMERGENCY ROOM IF SYMPTOMS WORSEN OR IF THERE IS NO IMPROVEMENT. CALL 911 IF YOU NEED IMMEDIATE ASSISTANCE. TAKE TYLENOL [id number] NEEDED AND IF NO CONTRAINDICATIONS ARE PRESENT. INCREASE ORAL HYDRATION. A WOUND CULTURE OR URINE CULTURE WAS ORDERED HERE IN THE EMERGENCY ROOM DEPARTMENT PLEASE FOLLOW-UP WITH PRIMARY CARE PROVIDER AND ADVISE THEM TO GET REPEAT PORTS FROM OUR FACILITY. IF YOU HAD ANY DONAVAN WRAP/SPLINTS THAT WERE APPLIED HERE, PLEASE DO NOT REMOVE THEM UNTIL YOU SEE YOUR PRIMARY CARE OR SPECIALTY. REFERRALS: Referrals: YAMEL NAJERA MD (PCP) KWADWO MALONE MD Time of Disposition: 11:23 I have reviewed, & agreed with my scribe's, documentation. (Entered by Nick Carranza, acting as a scribe for Dr. Lipscomb) I personally scribed for JALEEL LIPSCOMB MD (MELA) on 02/17/24 at 09:53. Electronically submitted by Nick Carranza ([email or web address]). I personally scribed for JALEEL LIPSCOMB MD (MELA) on 02/17/24 at 11:04. Electronically submitted by Nick Carranza ([email or web address]). JALEEL LIPSCOMB MD Feb 17, 2024 09:53
[2024-02-17 10:25] LABS: BASOPHILS # (AUTO) 0.05 K/uL (0.00-0.20); BASOPHILS % (AUTO) 0.6 % (0.0-5.0); EOSINOPHILS # (AUTO) 0.16 K/uL (0.00-0.70); HEMATOCRIT 37.5 % (36-48); IMMATURE GRANULOCYTE ABSOLUTE 0.03 K/uL (0-1); LYMPHOCYTES # (AUTO) 3.1 K/uL (1.0-4.8); LYMPHOCYTES % (AUTO) 38.9 % (21.0-51.0); MEAN CORPUSCULAR HEMOGLOBIN 32.2 pg (27.0-33.0); MEAN CORPUSCULAR HGB CONC 33.3 g/dL (32.0-36.0); MEAN CORPUSCULAR VOLUME 96.6 fL (79-99); MONOCYTES # (AUTO) 0.4 K/uL (0.1-1.0); MONOCYTES % (AUTO) 5.2 % (3.0-13.0); NEUTROPHILS # (AUTO) 4.1 K/uL (1.8-7.7); NEUTROPHILS % (AUTO) 52.9 % (40.0-77.0); PLATELET COUNT (AUTO) 277 K/uL (130-400); RED BLOOD CELL COUNT(AUTO) 3.88 MIL/uL (4.00-5.50); RED CELL DISTRIBUTION WIDTH 12.1 % (11.0-15.5); WHITE BLOOD COUNT (AUTO) 7.8 K/uL (4.8-10.8)
[2024-02-17 10:30] LABS: MUCUS,URINE RARE LPF (None Seen); SQUAMOUS EPITHELIAL CELL,UR MANY /HPF (0-2)
[2024-02-17 10:32] LABS: CREATININE 0.7 mg/dL (0.5-1.0); POTASSIUM 4.6 mmol/L (3.5-5.1)
--- NOTE | 2024-02-17 11:14 | HMCIMG ---
ULTRASOUND OF THE PELVIS ULTRASOUND ABD VASCULAR LIMITED INDICATION: Suprapubic pain COMPARISONS: None TECHNIQUE: Transabdominal real-time sonographic images were acquired earlier, and subsequently made available for review. FINDINGS: The uterus measures 12.4 x 5.8 x 8.5 cm. The uterus is normal in echotexture and contour. The endometrial thickness was not well-demonstrated. The right ovary measures 2.1 x 1.7 x 2.1 cm. The right ovary is normal in size, shape and echogenicity. No right adnexal masses demonstrated. 1.0 cm nonvascular anechoic right paraovarian cyst surrounded by a thick wall. Color Doppler flow is normal throughout the right ovary. Spectral Doppler analysis demonstrates a normal waveform pattern. The left ovary was not well-demonstrated. No free pelvic fluid demonstrated. IMPRESSION: Limitations as reported. Small simple right paraovarian cyst or right ovarian dominant follicle. Transvaginal imaging would provide better detail. Endometrium and left ovary were not well-demonstrated.
[2024-02-17 11:22] VITALS: BP 128/92; PULSE 80; RESP 18; TEMP 97.9; O2SAT 100
[2024-02-17] MEDS ORDERED: NAPR-1505 PO (11:24)
[2024-02-17] MEDS: ketOROlac 30MG VIAL (30MG/ML) IM ONE (11:27)
== END 2024-02-17 11:33 | disposition home or self-care (01) ==
LOC: EDH 09:13
DX: N83.201 Unspecified ovarian cyst, right side (principal); Z88.0 Allergy status to penicillin; Z88.5 Allergy status to narcotic agent; Z90.49 Acquired absence of other specified parts of digestive tract; Z79.899 Other long term (current) drug therapy; Z98.890 Other specified postprocedural states
CPT/HCPCS: 99285; 76856; 80048; 85025; 81001; 36415; 96372; J1885

== ENCOUNTER 2024-07-01 11:26 | Emergency (ER) | payer MEDICAID ==
[~2024-07-01] VITALS: Ht 167.6 cm; Wt 76.7 kg
[~2024-07-01 11:26] MED LIST changes: +NAPR-1505 PO
[2024-07-01 11:43] VITALS: BP 116/76; PULSE 74; RESP 22; TEMP 98.9
--- NOTE | 2024-07-01 12:28 | HMCIMG ---
US PELVIC NON-OB LIMITED HISTORY: Right lower abdominal pain COMPARISON: None TECHNIQUE: Transabdominal pelvic ultrasound study was performed. FINDINGS: The uterus measures 10 x 6.1 x 7.7 cm. The right ovary measures 1.9 x 1.5 x 1.9 cm. The left ovary measures 1.5 x 1.2 x 1.7 cm. Flow is seen in both ovaries. There is right ovarian cyst measuring 5.4 x 4.9 x 4.7 cm Endometrial thickness is 5 mm. No free fluid is seen in the cul-de-sac. IMPRESSION: 1. No adnexal mass is seen. Right ovarian cystic structure measuring 5.4 cm.
[2024-07-01] MEDS ORDERED: LACTATED RINGERS 1000ML 1,000 ML IV ONE (12:30)
[2024-07-01] MEDS ORDERED: ketOROlac 15MG/ML VIAL (15MG/ML) IV ONE (12:30)
--- NOTE | 2024-07-01 13:13 | ERN ---
ED Note History of Present Illness Stated Complaint: OVARIAN PAIN Chief Complaint: Abdominal Pain Time Seen by : 12:31 Time Seen by Midlevel: 12:57 Dictation: Ms. Strickland is a 49 year old female with history of ovarian cyst then into the e mergency department this afternoon for evaluation of abdominal pain. She since this morning she woke with right lower quadrant/pelvic pain reminiscent of pain she experienced when she was diagnosed with right ovarian cyst. She states now she is nauseated with back pain and chills. She states she stopped drinking alcohol and smoking cigarettes nine weeks ago. She states she has been vaping nicotine. She also states she has been taking semaglutide injections for weight loss and admits to taking an increased dose. She states she was seen at [facility] ER on Monday because her blood sugar had dropped to 47. She denies having fever, shortness of breath, cough, chest pain, palpitations, vomiting, diarrhea, melena, hematochezia, hematemesis, dysuria, headache, or dizziness. Allergies: Coded Allergies: Penicillins (Verified Allergy, 06/27/12) morphine (Verified Allergy, 06/27/12) Home Meds Active Scripts Naproxen (Naproxen) 375 Mg Tablet.dr, 375 MG PO BID PRN for PAIN LEVEL 1 TO 5 for 10 Days, #20 TAB Prov:JALEEL LIPSCOMB MD 02/17/24 Benzonatate (Tessalon Perles) 100 Mg Cap, 100 MG PO TID for cough, #30 CAP 0 Refills Prov:MARCY SEE NP 07/11/23 Albuterol Sulfate (Ventolin Hfa/Proventil Hfa/Proair Hfa) 90 Mcg Puff, 2 PUFF IH Q4H PRN for SHORTNESS OF BREATH/WHEEZING for 30 Days, #1 INH 0 Refills Prov:MARCY SEE NP 07/11/23 Nitrofurantoin Monohyd/M-Cryst (Macrobid 100 mg Capsule) 100 Mg Capsule, 100 MG PO BID for 7 Days, #14 CAP Prov:JALEEL LIPSCOMB MD 12/27/21 Albuterol Sulfate (Proair Digihaler) 90 Mcg Aer.pw.bas, 90 MCG IH Q4HPRN for 30 Days, #1 INHALER Prov:CHAYITO MARSHALL NP 04/14/21 D-Methorphan Hb/P-Epd HCl/Bpm (Bromfed Dm Cough Syrup) 118 Ml Syrup, 7.5 ML PO TID for cough for 5 Days, #120 ML Prov:CHAYITO MARSHALL NP 04/14/21 Amoxicillin/Potassium Clav (Augmentin 875-125 Tablet) 1 Each Tablet, 1 EACH PO BID for 10 Days, #20 TAB Prov:CHAYITO MARSHALL NP 04/14/21 Sulfamethoxazole/Trimethoprim (Bactrim Ds Tablet) 1 Each Tablet, 1 TAB PO BID for 7 Days, #14 TAB 0 Refills Prov:GASTON AUGUSTE MD 02/12/21 Diphenhyd/Phenyleph/Acetaminop (Theraflu Nighttime Powerpod) 1 Each Powder.pod, 1 EACH PO BID, #1 PACK Prov:AZAM JARA MD 01/06/21 Doxycycline Hyclate (Doxycycline Hyclate) 100 Mg Capsule, 100 MG PO BID for 10 Days, #20 CAP Prov:RADHA PACHECO MD 09/04/20 Levofloxacin (Levofloxacin) 750 Mg Tablet, 750 MG PO DAILY for 10 Days, #10 TAB Prov:RADHA PACHECO MD 09/04/20 Reported Medications Multivitamin (Multi Vitamin Daily) 1 Each Tablet, 1 EACH PO DAILY, TAB 06/02/17 Past Medical History Past Medical History: Other Additional Past Medical Hx: RT OVARIAN CYST Surgical History: Appendectomy, Cholecystectomy, Other, Surgical History Other: RIGHT FOOT TENDON, TUMMY TUCK Family History: HTN History: Not Applicable LMP: Jun 30, 2024 RN Note Reviewed/Agreed w/PFSH: Yes Review of System Dictation REVIEW OF SYSTEMS: CONSTITUTIONAL: Patient denies fevers, sweats and weight changes. Reports fatigue, general weakness, and chills EYES: Patient denies any visual symptoms. EARS, NOSE, AND THROAT: No difficulties with hearing. No symptoms of rhinitis or sore throat. CARDIOVASCULAR: Patient denies chest pains, palpitations, orthopnea and paroxysmal nocturnal dyspnea. RESPIRATORY: No dyspnea on exertion, no wheezing or cough. GI: No diarrhea, constipation,hematochezia or melena. Reports right lower abdominal pain with nausea and vomiting : No urinary hesitancy or dribbling. No nocturia or urinary frequency. No abnormal urethral discharge. Reports low back pain/bilateral flank pain. MUSCULOSKELETAL: No myalgias or arthralgias. NEUROLOGIC: No chronic headaches, no seizures. Patient denies numbness, tingling or weakness. PSYCHIATRIC: Patient denies problems with mood disturbance. No problems with anxiety. ENDOCRINE: No excessive urination or excessive thirst. Reports having low blood glucose readings on Monday for which she was seen at [facility] ER. She states she has been taking semaglutide injections for weight loss. DERMATOLOGIC: Patient denies any rashes or skin changes. Initial Vital Sign VS Vital Signs Date Time Temp Pulse Resp B/P (MAP) Pulse Ox O2 Delivery O2 Flow Rate FiO2 07/01/24 11:43 99.0 74 22 116/76 100 0 Physical Exam Dictation Vital signs: Reviewed. Temp 99 Constitutional: No acute distress. Non-toxic appearing. Head/Face: Normocephalic, atraumatic. Eyes: Periorbital areas with no swelling, redness, or edema. Lids and lashes are normal. Conjunctival injection is absent. Sclera anicteric. Pupils equal, round, reactive to light. ENT: Pinnas intact and no signs of trauma or erythema. Ear canals clear and no discharge. TMs no erythema. No nasal discharge or bleeding noted. Oropharynx with no exudate, redness, swelling, masses, exudates, or evidence of obstruction. Uvula midline. Mucous membranes slightly dry eyes Neck: Trachea midline, no masses palpated, and no cervical lymphadenopathy. No swelling. Supple, full range of motion. Chest/Axilla: No tenderness, no crepitus, no paradoxical movement, no retractions. Cardiovascular: Regular rate, regular rhythm, no murmur, no gallops. Symmetric pulses. No peripheral edema. Respiratory: Respirations even and unlabored. Lung sounds clear; no wheezes, rales or rhonchi. Room air SpO2 100% Gastrointestinal: Inspection is normal. No distention is appreciated. Bowel sounds are normal. No mass or organomegaly . There is no tenderness. No rebound. No rigidity. No voluntary or involuntary guarding. No Doan's sign. : Started menses. Positive CVA tenderness bilaterally Neurological: Normal speech, gross motor function intact, gross sensory function intact. No focal weakness/Paresthesia. Musculoskeletal/Extremities: All extremities have full range of motion, no pain or tenderness on palpation. Symmetric pulses. Integumentary: Intact. Skin is normal color, warm and dry. Cap refill less than 3 seconds. Results (Laboratory/Radiology) Ultrasound Comment: PATIENT: HILARY STRICKLAND MR#: [id number] : 1975 SEX: F AGE: 49 LOCATION: [facility] ORDER [id number] STATUS: REG ER REPORT#: [id number] SERVICE [id number] REASON: RLQ PAIN, HX OF AVARIAN CYST ORDERING PHYSICIAN: LESLIE PAL DO PROCEDURE: PELVLTD - US PELVIC NON-OB LIMITED US PELVIC NON-OB LIMITED HISTORY: Right lower abdominal pain COMPARISON: None TECHNIQUE: Transabdominal pelvic ultrasound study was performed. FINDINGS: The uterus measures 10 x 6.1 x 7.7 cm. The right ovary measures 1.9 x 1.5 x 1.9 cm. The left ovary measures 1.5 x 1.2 x 1.7 cm. Flow is seen in both ovaries. There is right ovarian cyst measuring 5.4 x 4.9 x 4.7 cm Endometrial thickness is 5 mm. No free fluid is seen in the cul-de-sac. IMPRESSION: 1. No adnexal mass is seen. Right ovarian cystic structure measuring 5.4 cm. DICTATED BY: ALEKS GUZMAN MD DATE: 07/01/24 122 ELECTRONICALLY SIGNED BY: ALEKS GUZMAN MD DATE: 07/01/24 1228 ED Course ED Course Patient was evaluated for abdominal pain with immediate pelvic ultrasound which revealed a no adnexal mass. There is a right ovarian cystic structure measuring 5.4 cm. No free fluid is seen in the cul-de-sac. Both ovaries with flow. When called for labs, CT scan, IV fluids and analgesics patient not found in lobby. Patient eloped from ED lobby prior to additional studies and treatment. Medical Decision Making MDM Differential diagnosis: Ovarian torsion, UTI/pyelonephritis, electrolyte derangement Ordered IV fluids, labs, US I evaluated patient but she elected to elope from ED lobby. She did not stay for treatment. DX & DISP Disposition: Other(Comment) (Eloped) Departure Condition: Other(comment) (Eloped) Referrals: YAMEL NAJERA MD (PCP) SANDI MAZARIEGOS NP Jul 01, 2024 13:13 LESLIE PAL DO Jul 08, 2024 09:01
== END 2024-07-01 14:58 | disposition left against medical advice (07) ==
LOC: EDH 11:26
DX: R10.2 Pelvic and perineal pain (principal); Z88.0 Allergy status to penicillin; Z88.5 Allergy status to narcotic agent; Z90.49 Acquired absence of other specified parts of digestive tract
CPT/HCPCS: 76857; 99284